=== PATIENT | male | born 1945 | race Caucasian/White ===

== ENCOUNTER 2016-11-25 21:37 | Observation (INO) ==
--- NOTE | 2016-11-25 22:36 | Emergency Department Note ---
Disposition Clinical Impression: Altered mental status Disposition: Admitted As Inpatient Condition: Fair Referrals: NO,PCP [Primary Care Provider] - Forms: ED Satisfaction Letter Syncope HPI - General Chief Complaint: ED Dizziness Stated Complaint: "went unresponsive, doesn't remember" Source: EMS Limitations: no limitations Nursing Notes Reviewed: Yes Vital Signs Reviewed: Yes - History of Present Illness HPI Narrative: A she presents with complaint of altered mental status. Per report patient was watching TV this suddenly jumped up to the headache started shaking all over and started foaming to the mouth. During this episode family states he was not responsive to sounder touch. Patient is similar episode about 9 months ago but by the time the EMS arrived his symptoms are resolved. Patient appeared to be have some post ictal symptoms associated. Patient denies chest pain denies shortness of breath. Patient denies any new medications associated area of patient states he feels "okay" - Related Data Allergies Allergy/AdvReac Type Severity Reaction Status Date / Time No Known Allergies Allergy Verified 11/25/16 21:41 All systems ED: reviewed and negative except as stated. Past Medical History - Past Medical History Source: patient Medical history: Reports: no medical history - Social History Smoking Status: Current every day smoker Alcohol use: Reports: none Drug use: Reports: none Physical Exam - General Limitations: no limitations General appearance: alert - Head Head exam: atraumatic, normocephalic, normal inspection - Eye Eye exam: Present: normal appearance, PERRL, EOMI - ENT ENT exam: normal exam, normal oropharynx, mucous membranes moist - Neck Neck exam: Present: normal inspection, full ROM, trachea midline - Chest Chest inspection: Present: normal inspection, symmetric chest wall rise - Respiratory Respiratory exam: Present: normal lung sounds bilaterally - Cardiovascular Cardiovascular exam: Present: regular rate, normal rhythm, normal heart sounds - Abdominal Exam Abdominal exam: Present: soft, Non-Tender. Absent: tenderness, distention, guarding, rebound, rigidity - Extremities Exam Extremities exam: Present: normal inspection, full ROM. Absent: tenderness, pedal edema - Back Exam Back exam: Present: normal inspection, full ROM. Absent: tenderness - Neurological Exam Neurological exam: Present: alert, oriented X3 - Psychiatric Psychiatric exam: Present: normal affect, normal mood - Skin Skin exam: Present: warm, dry, intact, normal color Course Vital Signs Temperature 97.8 F 11/25/16 21:39 Pulse Rate 88 03/16/17 21:39 Respiratory Rate 16 11/25/16 21:39 Blood Pressure 135/67 11/25/16 21:39 O2 Sat by Pulse Oximetry 95 11/25/16 21:39 Temperature 97.8 F 11/25/16 21:39 Pulse Rate 88 11/25/16 21:41 Respiratory Rate 16 11/25/16 21:41 Blood Pressure 135/67 11/25/16 21:41 O2 Sat by Pulse Oximetry 95 11/25/16 21:41 Oxygen Delivery Oxygen Delivery Room Air Syncope - Differential Diagnosis Likely: syncope due to orthostatic hypotension, vasovagal syncope, complete atrioventricular block, pulmonary embolism - Lab Data Lab results reviewed: Yes I reviewed the patient's lab results. Result diagrams: 11/25/16 22:26 11/25/16 22:26 Lab Results 11/25/16 11/25/16 11/25/16 Range/Units 22:26 22:26 22:26 WBC 11.9 H (4.3-11.1) K/mcL RBC 4.54 (4.19-5.50) M/mcL Hgb 13.4 (12.9-16.9) g/dL Hct 40.0 (37.5-50.1) % MCV 88.1 (83.0-100.0) fL MCH 29.5 (28.0-33.3) pg MCHC 33.5 (31.6-35.5) g/dL RDW 13.2 (11.5-14.5) % Plt Count 214 (140-400) K/mcL MPV 8.8 L (9.4-12.4) fL Immature Gran % 0.5 (0-4) % Seg Neutrophils % 83.1 % Lymphocytes % 9.5 % Monocytes % 5.9 % Eosinophils % 0.8 % Basophils % 0.2 % Neutrophils # 9.9 H (1.6-8.9) K/mcL Lymphocytes # 1.1 (0.6-4.6) K/mcL Monocytes # 0.7 (0.0-1.3) K/mcL Eosinophils # 0.1 (0.0-0.6) K/mcL Basophils # 0.0 (0.0-0.2) K/mcL Sodium 129 L (136-145) mEq/L Potassium 3.7 (3.5-4.5) mEq/L Chloride 96 L (98-109) mEq/L Carbon Dioxide 24 (19-29) mEq/L BUN 9 (8-26) mg/dL Creatinine 1.02 (0.72-1.25) mg/dL Est GFR ( Amer) > 60 (> 60) Est GFR (Non-Af Amer) > 60 (> 60) BUN/Creatinine Ratio 9 (6-26) Glucose 116 H (70-99) mg/dL Calculated Osmolality 268 L (280-300) Calcium 9.3 (8.6-10.8) mg/dL Total Bilirubin 0.7 (0.2-1.2) mg/dL AST 22 (5-34) Units/L ALT 19 (0-55) Units/L Alkaline Phosphatase 51 (38-126) Units/L Troponin I 0.00 (0-0.03) ng/mL Serum Total Protein 6.9 (6.0-8.3) g/dL Albumin 3.8 (3.5-5.0) g/dL Globulin 3.1 (2.4-3.5) g/dL Albumin/Globulin Ratio 1.2 (1.1-2.2) - Radiology Data Radiology results reviewed: Yes I reviewed the patient's radiology results. Chest X-Ray 11/25/16 21:59 IMPRESSION: Mild bibasilar opacification, which may represent atelectasis versus airspace disease. D/ / Issa Reese MD / Issa Reese MD Interpreting Provider: Issa Reese MD Head CT 11/25/16 21:59 IMPRESSION: No acute intracranial abnormality. D/ / Issa Reese MD / Issa Reese MD Interpreting Provider: Issa Reese MD - EKG Data EKG attestation: Yes I reviewed and interpreted this EKG. EKG results narrative: EKG is unchanged from previous EKG that was performed on 01/10/2013 EKG shows normal: sinus rhythm Rate: normal Rhythm: NSR
[2016-11-25 22:49] LABS: Basophils % 0.2 %; Eosinophils # 0.1 K/mcL (0.0-0.6); Eosinophils % 0.8 %; Hemoglobin 13.4 g/dL (12.9-16.9); Immature Granulocytes % 0.5 % (0-4); Lymphocytes # 1.1 K/mcL (0.6-4.6); Lymphocytes % 9.5 %; Mean Corpuscular HGB Conc 33.5 g/dL (31.6-35.5); Mean Corpuscular Hemoglobin 29.5 pg (28.0-33.3); Mean Corpuscular Volume 88.1 fL (83.0-100.0); Mean Platelet Volume 8.8 fL (9.4-12.4); Monocytes # 0.7 K/mcL (0.0-1.3); Monocytes % 5.9 %; Neutrophils # 9.9 K/mcL (1.6-8.9); Platelet Count 214 K/mcL (140-400); Red Blood Count 4.54 M/mcL (4.19-5.50); Red Cell Distribution Width 13.2 % (11.5-14.5); Segmented Neutrophils % 83.1 %
[2016-11-25 23:05] LABS: Alanine Aminotransferase 19 Units/L (0-55); Albumin 3.8 g/dL (3.5-5.0); Albumin/Globulin Ratio 1.2 (1.1-2.2); Alkaline Phosphatase 51 Units/L (38-126); Aspartate Amino Transferase 22 Units/L (5-34); BUN/Creatinine Ratio 9 (6-26); Bilirubin,Total 0.7 mg/dL (0.2-1.2); Blood Urea Nitrogen 9 mg/dL (8-26); Calcium 9.3 mg/dL (8.6-10.8); Carbon Dioxide 24 mEq/L (19-29); Chloride 96 mEq/L (98-109); Globulin 3.1 g/dL (2.4-3.5); Glucose 116 mg/dL (70-99); Osmolality,Calculated 268 (280-300); Potassium 3.7 mEq/L (3.5-4.5); Sodium 129 mEq/L (136-145); Total Protein 6.9 g/dL (6.0-8.3); eGFR For African Americans > 60 (> 60); eGFR For Non-African Americans > 60 (> 60)
--- NOTE | 2016-11-26 00:32 | Internal Med History&Physical ---
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 Emergency Discharge Comment: Admit Intervention Last Done ED Syncope Assessment 11/25/16 21:41 Query Result Syncope Symptoms/Complaint Loss of Consciousness Syncope Onset Tonigt" Syncope Description of Event Tonic-Clonic Movements Post-Event Confusion Syncope Prodromal Symptoms None Syncope Witnessed Yes - by Other Syncope Current Symptoms None Level Of Consciousness Awake Alert Appropriate Follows Commands Patient Orientation Person Place Name Age Date of Skin Temperature Warm Skin Moisture Dry Skin Turgor Normal Respiratory Depth Normal Respiratory Effort Non-Labored Respiratory Pattern Regular Nausea/Vomiting Presence Nauseated ED Comment "Lying in the bed watching criminal 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 No ED Admit to 3B Bed assigned 3 b 33 Transported by semiconductor manufacturing technician Transported with IV Report given to Nurse Care transferred to Bernice RN Information relayed patient's care treatments medications given condition Severity scale (1-10) 0 Pain Scale Used Standard (1-10) Blood Pressure 144/72 Heart rate 89 Respiratory Rate 16 Oxygen Delivery Room Air Pulse Oximetry Reading 96 Critical Care Minutes 0 ED Dizziness Assessment 11/25/16 22:09 Query Result Dizziness Symptoms/Complaint Dizziness Dizziness Onset "tonight" Dizziness Timing Sudden Onset Dizziness Description Lightheadedness Dizziness Similar Symptoms Previously Yes Dizziness Hx of Trauma Yes Dizziness Severity Severe Dizziness Improves With Nothing Dizziness Worsens With Movement Dizziness Associated Symptoms Denies Other Symptoms Level Of Consciousness Awake Alert Appropriate Follows Commands Patient Orientation Person Place Name Age Date of Skin Temperature Warm Skin Moisture Dry Skin Turgor Normal Respiratory Depth Normal Respiratory Effort Non-Labored Respiratory Pattern Regular Neurological Symptoms Dizziness Syncope Problems with Ambulation Unsteady Gait Nausea/Vomiting Presence None Observation Discharge Date/Time: Observation Discharge Disposition: Observation Discharge Comment: Instructions: Stand-Alone Forms: Prescriptions: Visit Report - Forms: - Referrals: Radiology Results Chest X-Ray 11/25/16 21:59 IMPRESSION: Mild bibasilar opacification, which may represent atelectasis versus airspace disease. D/ / Issa Reese MD / Issa Reese MD Interpreting Provider: Issa Reese MD Head CT 11/25/16 21:59 IMPRESSION: No acute intracranial abnormality. D/ / Issa Reese MD / Issa Reese MD Interpreting Provider: Issa Reese MD
[2016-11-26] MEDS ORDERED: Naloxone 0.4 MG/ML INJ IVP PRN (00:48)
[2016-11-26] MEDS ORDERED: *HR* Morphine 2 MG/ML SYRINGE IVP PRN (00:48)
[2016-11-26] MEDS ORDERED: *HR* Promethazine 25 MG/ML VIAL IVP PRN (00:48)
[2016-11-26] MEDS ORDERED: Acetaminophen 325 MG TABLET PO PRN (00:48)
[2016-11-26] MEDS ORDERED: *HR* OxyCODONE Immed Rel 5 MG TABLET PO PRN (00:48)
[2016-11-26] MEDS: 0.9 % Sodium Chloride 1,000 ML IVC SCH ×2 (01:31→17:35)
[2016-11-26 04:41] LABS: Bilirubin,Urine Negative (Negative); Blood,Urine Negative (Negative); Clarity,Urine Clear (Clear); Color,Urine Yellow (Yellow); Glucose,Urine (UA) Normal (Normal); Ketones,Urine Trace mg/dL (Negative); Leukocyte Esterase,Urine Negative (Negative); Nitrite,Urine Negative (Negative); Protein,Urine Trace mg/dL (Neg-Trace); Specific Gravity,Urine 1.011 (1.010-1.025); Urobilinogen,Urine Normal (Normal)
[2016-11-26 04:43] LABS: Bacteria,Urine None Seen per hpf (None-Few); Hyaline Casts,Urine None Seen per lpf (None-Few); RBC,Urine 0-3 per hpf (0-3); Squamous Epithelial Cell,Urine Many per lpf (None-Few); WBC,Urine 0-3 per hpf (0-3)
[2016-11-26 04:49] LABS: Amphetamine Screen,Urine Negative ng/mL (Cutoff=1000); Barbiturate Screen,Urine Negative ng/mL (Cutoff=200); Benzodiazepines Screen,Urine Negative ng/mL (Cutoff=200); Cannabinoid Screen,Urine Negative ng/mL (Cutoff = 50); Cocaine Screen,Urine Negative ng/mL (Cutoff= 300); Opiate Screen,Urine Negative ng/mL (Cutoff=300); Phencyclidine Screen,Urine Negative ng/mL (Cutoff=25)
[2016-11-26 05:06] LABS: VBG HCO3 25.9 mEq/L (21-27); VBG PH 7.35 pH Units (7.32-7.42)
[2016-11-26 05:10] LABS: Basophils % 0.2 %; Eosinophils # 0.1 K/mcL (0.0-0.6); Eosinophils % 0.6 %; Hematocrit 37.9 % (37.5-50.1); Hemoglobin 12.7 g/dL (12.9-16.9); Immature Granulocytes % 0.2 % (0-4); Lymphocytes # 1.5 K/mcL (0.6-4.6); Lymphocytes % 18.4 %; Mean Corpuscular HGB Conc 33.5 g/dL (31.6-35.5); Mean Corpuscular Hemoglobin 29.4 pg (28.0-33.3); Mean Corpuscular Volume 87.7 fL (83.0-100.0); Mean Platelet Volume 8.9 fL (9.4-12.4); Monocytes # 0.7 K/mcL (0.0-1.3); Monocytes % 8.4 %; Platelet Count 193 K/mcL (140-400); Red Blood Count 4.32 M/mcL (4.19-5.50); Red Cell Distribution Width 13.2 % (11.5-14.5); Segmented Neutrophils % 72.2 %
[2016-11-26 05:27] LABS: Creatine Kinase 708 Units/L (30-200)
[2016-11-26 05:28] LABS: Ethanol < 10 mg/dL (0-10)
[2016-11-26 05:31] LABS: Alanine Aminotransferase 17 Units/L (0-55); Albumin 3.5 g/dL (3.5-5.0); Albumin/Globulin Ratio 1.1 (1.1-2.2); Alkaline Phosphatase 54 Units/L (38-126); Aspartate Amino Transferase 28 Units/L (5-34); BUN/Creatinine Ratio 9 (6-26); Bilirubin,Total 0.7 mg/dL (0.2-1.2); Blood Urea Nitrogen 8 mg/dL (8-26); Calcium 8.8 mg/dL (8.6-10.8); Carbon Dioxide 22 mEq/L (19-29); Chloride 100 mEq/L (98-109); Chol/HDL Ratio 3.1 (0-4.9); Cholesterol 140 mg/dL (< 200); Globulin 3.1 g/dL (2.4-3.5); Glucose 103 mg/dL (70-99); HDL Cholesterol 45 mg/dL (40-59); LDL Cholesterol,Calculated 77 mg/dL (0-99); Magnesium 1.7 mg/dL (1.6-2.6); Osmolality,Calculated 273 (280-300); Phosphorous 3.5 mg/dL (2.3-4.7); Potassium 3.9 mEq/L (3.5-4.5); Sodium 132 mEq/L (136-145); Total Protein 6.6 g/dL (6.0-8.3); Triglycerides 89 mg/dL (< 150); eGFR For African Americans > 60 (> 60); eGFR For Non-African Americans > 60 (> 60)
[2016-11-26 05:42] LABS: C-Reactive Protein 0 mg/L (Less than 5)
[2016-11-26 05:43] LABS: Thyroid Stimulating Hormone 2.014 mcIU/mL (0.350-4.840)
[2016-11-26 06:04] LABS: Prolactin 2.42 ng/mL (3.46-19.40)
[2016-11-26] MEDS ORDERED: *HR* LORazepam 2 MG/ML VIAL IVP PRN (06:52)
[2016-11-26] MEDS ORDERED: Ipratropium/Albuterol Neb 3 ML IH PRN (06:53)
[2016-11-26] MEDS ORDERED: Albuterol 2.5 MG/3 ML NEBULIZER IH PRN (06:53)
[2016-11-26] MEDS: Famotidine 20 MG TABLET PO SCH ×2 (08:14→20:36)
[2016-11-26] MEDS: Nicotine 21 MG PATCH.TD24 TD SCH (08:17)
--- NOTE | 2016-11-26 08:32 | Neurology - Consult Note ---
Date of Encounter: 11/26/16 Time of Encounter: 08:31 Assessment and Plan (1) Seizure disorder Current Visit: Yes Status: Acute Patients appears to have had his second unprovoked seizure last night, so will start treatment with Keppra 500 mg BID MRI without contrast and EEG have already been ordered, will await results Continue with seizure precautions and Ativan PRN for acute seizure episodes He may be predisposed to having seizures given the finding of hyponatremia initially of 129, but unsure if he has baseline chronically low levels History of Present Illness Chief complaint: altered mental status HPI: Mr. Vyas is a 71 year old male who presents to the ED with altered mental status concerning for possible seizure. His is at bedside and is able to assist with history as patient does not remember the exact details of the event. He states last night around 7:30 PM he was watching TV on his bed and suddenly lost consciousness. His was nearby on her computer and heard him scream, then saw that he was rigid with his arms flexed, was foaming at the mouth, and unresponsive to voice or touch. This episode lasted about 5 minutes and he also urinated himself, bit his tongue, and had an episode of vomiting. When he did regain consciousness, says that he remained confused stating he did not know he urinated himself and this state lasted about 5-10 minutes until the squad arrived. Patient denies any visual or hearing changes, chest pain, shortness of breath, headache, numbness, tingling or weakness. Patient admits having a similar episode 9 months ago, where the squad was also called. However, the symptoms completely resolved when they did come and he elected to not go to the hospital. He also describes falling off a ladder 8 months ago and hit his head and sprained his right ankle, but he did not get evaluated at time as well. He does have a history of HTN, anxiety and depression but has not started any new medications recently. He does admit to drinking about 2-3 cans of beer a week but denies any history of heavy use or withdrawals. Past Med Surg Social Fam HX - Past Medical History Medical history: arthritis, cancer (Prostate cancer status post brachytherapy), COPD (chronic bronchitis), diabetes (Impaired fasting glucose/glucose intolerance; borderline type 2 diabetes mellitus.), GERD, hyperlipidemia, hypertension, other (Periodic insomnia.) Psychiatric history: anxiety, depression, other - Past Surgical History Surgical History: cancer surgery (Brachytherapy for prostate cancer. Cystoscopy.), orthopedic, other (Back surgery. Ankle surgery.), other - Social History Smoking Status: Current every day smoker Alcohol use: rarely Drug use: none - Family History Father Hx Family Cardiac Disorders: Yes Medications and Allergies BuPROPion [Wellbutrin] 300 mg PO DAILY 11/26/16 [History] TraZODone 50 mg PO HS PRN 11/26/16 [History] Allergies No Known Allergies Allergy (Verified 11/25/16 21:41) All Systems: A 10-system review of systems was performed and is negative for pertinent findings except as documented above in the HPI. - Constitutional Constitutional ROS IM: no fever(s), no frequent falls, no headache(s), no weakness - Cardiovascular Cardiovascular ROS IM: syncope, no chest pain, no dyspnea, no dyspnea on exertion, no irregular heart rhythm, no pedal edema - Respiratory Respiratory IM: no cough, no wheezing, no excessive phlegm production, no change in phlegm color - Gastrointestinal Gastrointestinal: vomiting, no abdominal pain, no diarrhea, no dysphagia, no melena, no nausea - Musculoskeletal Musculoskeletal ROS IM: no arthralgias, no back pain, no muscle cramps - Neurological Neurological ROS: confusion, memory loss, syncope, no abnormal gait, no disequilibrium, no dizziness, no focal weakness, no headache(s), no numbness - Psychiatric Psychiatric general PM: anxiety, depression Physical Examination - Vital Signs Vital Signs: Initial Vital Signs Temp Pulse Resp BP Pulse Ox 97.8 F 88 16 135/67 95 11/25/16 21:39 11/25/16 21:39 11/25/16 21:39 11/25/16 21:39 11/25/16 21:39 - Exam Exam: superficial ulcer of tongue on right lateral side. previous scar on vertex of head from fall and stitching - Constitutional General appearance: comfortable - Neurologic Sensorimotor examination: intact Detailed motor examination: full strength in all major muscle groups Motor examination - right side: 5/5: deltoids, biceps, triceps, wrist flexion, wrist extension, saw straightener, hip flexors, tibialis Anterior, quadriceps Motor examination - left side: 5/5: deltoids, biceps, triceps, wrist flexion, wrist extension, hip flexors, saw straightener, quadriceps, tibialis Anterior Detailed sensory examination: intact Reflex and gait examination: intact Reflexes: Biceps: 2+, Brachioradialis: 2+, Patella: 2+, Achilles: 2+ Mental Status Examination: awake, alert, oriented to person, oriented to place, oriented to time, follows commands appropriately, answers questions appropriately, no agnosia, no aphasia, no aproxia Cranial nerve examination: PERRL, EOMI, visual guerrero intact, corneal reflexes brisk symmetrically, sensory to face intact, mastication intact, no facial asymmetry is present, no dysarthria, hearing is intact symmetrically, soft palate elevates bilaterally upon phonation, gag reflex intact, flexes SCM and trapezius muscles symmetrically with full power, tongue protrudes midline, no atrophy or facial fasiculations present Cerebellar examination: no dysmetria, performs finger to nose and heel to ross symmetrically without ataxia, no gait ataxia, no truncal ataxia, no difficulty with rapid alternating movements Results - Laboratory Findings CBC and BMP: 11/26/16 04:50 11/26/16 04:50 Abnormal lab findings: Abnormal lab results Hgb 12.7 g/dL (12.9-16.9) L 11/26/16 04:50 MPV 8.9 fL (9.4-12.4) L 11/26/16 04:50 VBG pO2 47 mmHg (25-40) H 11/26/16 04:50 Sodium 132 mEq/L (136-145) L 11/26/16 04:50 Glucose 103 mg/dL (70-99) H 11/26/16 04:50 Serum Osmolality 275 mOsm/kg (280-300) L 11/26/16 04:50 Calculated Osmolality 273 (280-300) L 11/26/16 04:50 Creatine Kinase 708 Units/L (30-200) H 11/26/16 04:50 Prolactin 2.42 ng/mL (3.46-19.40) L 11/26/16 04:50 Urine Ketones Trace mg/dL (Negative) H 11/26/16 04:28 Ur Squamous Epith Cells Many per lpf (None-Few) H 11/26/16 04:28 Urine Osmolality 215 mOsm/kg (300-1090) L 11/26/16 04:28 Consult Discharge Plan - Plan Referrals: Lucien Borja DO [Primary Care Provider] -
[2016-11-26] MEDS: levETIRAcetam 250 MG TABLET PO SCH ×2 (12:37→17:35)
--- NOTE | 2016-11-26 14:02 | ECHO - Doppler Report ---
Echocardiogram Name: Aamir Vyas Date of Study: 11/26/2016 Date: 1945 Ht: 69.0 in Medical Record#: [id number] Age: 71 Wt: 218.0 lb Gender: Male BSA: 2.14 Order #: [id number] Location: [facility] Room #: [facility] Reading Physician: Jonas Kerr DO, DIXON HASTINGS FASNC Cd Reactor Operator: Ronald Lincoln RDCS Ordering Physician: Aristides Do MD Primary Physician: Lucien Borja DO Indications: Syncope Impressions: LVEF 60-65%. Normal LV chamber size and function. Mild concentric left ventricular hypertrophy. Mild left ventricular diastolic dysfunction. Normal right ventricular structure and function. No evidence of pulmonary hypertension. No significant valvular dysfunction. Left Ventricular Wall Motion: Rest Echo Findings All wall segments showed normal motion. Findings: Study Quality * Technically adequate exam. ECG Findings * Normal sinus rhythm. Left Ventricle * LVEF 60-65%. * Normal LV chamber size and function. * Mild concentric left ventricular hypertrophy. * Mild left ventricular diastolic dysfunction. Right Ventricle * Normal right ventricular structure and function. Left Atrium * Mildly dilated left atrium. Right Atrium * Normal right atrial size. Interatrial Septum * No evidence of PFO by color Doppler. Aortic Valve * Trileaflet aortic valve with normal function. * No aortic regurgitation. * No aortic stenosis. Mitral Valve * Normal mitral valve structure and function. * No mitral regurgitation. * No mitral stenosis. Tricuspid Valve * Normal tricuspid valve structure and function. * Trace tricuspid regurgitation. * No evidence of pulmonary hypertension. Pulmonic Valve * Pulmonic valve not well visualized. * No pulmonic regurgitation. Aorta * Normally sized aortic root. Pericardium * The pericardium appears normal. IVC * Normal IVC dimensions and inspiratory collapse. Pulmonary Artery * Normal visualized portions of the main pulmonary artery. History Hypertension Hypercholesteremia Family History of CAD Measurements: BP: 128/ 71 2D Normal Values RVIDd: 3.00 cm <2.7 cm IVSd: 1.20 cm 0.6 - 1.0 cm LVIDd: 4.50 cm 3.7 - 5.6 cm LVPWd: 1.20 cm 0.6 - 1.1 cm LVIDs: 2.60 cm 1.5 - 3.6 cm AO: 2.80 cm < 4.0 cm LA: 3.00 cm 2.0 - 4.0cm %FS: 42.20 cm >25 % LA volume: 40 Mitral Valve Peak E:.65 m/sec Peak A:1.03 m/sec E/A Ratio:0.6 Peak E' Lat Rey:10.9 cm/s Peak E' Med Rey:6.53 cm/s E/E' Lat Ratio:6 E/E' Med Ratio:10 Tricuspid Valve TV Regurg Peak Grad: 9.00mmHg TV Regurg Peak Rey: 1.48m/sec Updated by Jonas Kerr DO, DARLING, DIXON, AISHWARYA on 11/26/2016 1:58:13 PM electronically signed on 11/26/2016 1:59:00 PM with status of Final Wall Motion [place]: 1=Normal, 2=Hypokinesis, 3=Akinesis, 4=Dyskinesis, 5=Aneurysmal, 6=Hyperkinetic, X=Not Visualized (Blank)=Missing
--- NOTE | 2016-11-26 14:24 | EEG/EMG/Oth Biometrics Report ---
EEG Procedure Report Date of procedure: 11/26/16 EEG Procedure: Routine EEG Procedure Note: Medication: no anticonvulsants listed. Report: This EEG was acquired with standard international 10-20 electrode placement system with EKG recording. The Background activity during this EEG was characterized by the presence of posterior dominant alpha rhythm with best frequency up to 11 Hz. The background activity was reactive to eye openings. Sleep stages were not identified. Drowsiness was characterized by the presence of drop off of posterior dominant alpha rhythm. There are no electricographic seizures identified during this tracing. There are however, intermittent polyspile/spike/slow waves, occurring synchronously, during wakefulness. No focal slowing noted during this recording. Photic stimulation produced no abnormalities. HV not performed during this study. EKG tracing showed no significant cardiac dysarrhythmia. Impression: This is an abnormal EEG due to presence of intermittent, synchronous high amplitude polyspike/spike/slow wave activity during wakefulness. Clinical Correlation: This EEG showed abnormal findings that may suggest increased susceptibility for a generalized seizure disorder. This could be seen as an interictal phenomenon in patients with generalized epilepsy. Clinical correlation is advised. Prolonged EEG recording can be useful in seizure confirmation.
--- NOTE | 2016-11-26 16:40 | Electrocardiograph Report ---
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
[2016-11-26] MEDS ORDERED: levETIRAcetam 250 MG TABLET PO SCH (18:00)
--- NOTE | 2016-11-26 19:42 | Internal Med Progress Note ---
Date of Encounter: 11/26/16 Time of Encounter: 09:00 - Assessment and plan (1) Observed seizure-like activity Current Visit: Yes Status: Acute Assessment and plan: Patient was watching TV last diabetic approximately 7:30 PM he has no recollection of events after this until this morning in the ED. states that patient jumped up and grabbed his head like he had a headache began shaking. She states that he was incontinent of urine and did bite his tongue. Per the ED report patient did have postictal timeframe. EEG done today results pending. .prn Ativan for seizure activity Seizure precautions Patient started on Keppra by neurology Correcting hyponatremia We will continue to monitor labs and vital signs (2) Altered mental status Current Visit: Yes Status: Acute Assessment and plan: Patient appears to have witnessed seizure-like activity a post ictal period afterwards. Patient is a poor historian. MRI head shows no acute intracranial abnormality or acute infarct, does show minimal global volume loss with mild chronic microvascular ischemic changes. Monitor labs Monitor vital signs Qualifiers: Altered mental status type: unspecified Qualified Code(s): R41.82 - Altered mental status, unspecified (3) Seizure disorder Current Visit: Yes Status: Acute Assessment and plan: Plan as above (4) HLD (hyperlipidemia) Current Visit: Yes Status: Chronic Assessment and plan: Continue home medications. Chronic Qualifiers: Hyperlipidemia type: unspecified Qualified Code(s): E78.5 - Hyperlipidemia , unspecified (5) HTN (hypertension) Current Visit: Yes Status: Chronic Assessment and plan: Chronic. Continue home medications. Monitor vital signs. Qualifiers: Hypertension type: unspecified secondary hypertension Qualified Code(s): I15.9 - Secondary hypertension, unspecified; I15 - Secondary hypertension - Time Spent With Patient less than 15 minutes - Subjective Interval history: Patient states that he was watching TV last night and is unaware of any events after that. Patient appears to be slightly confused this morning and says that this happened about 9 months ago as well when he fell from a ladder. Patient then states that that is not true and happened about 2 years ago after he discontinued his antidepressant suddenly. Patient states he is questioning now if this episode has something to do with inconsistent use of Xanax. - Constitutional Vitals: Temp Pulse Resp BP Pulse Ox 98.3 F 94 16 129/75 93 L 11/26/16 16:44 11/26/16 16:44 11/26/16 16:44 11/26/16 16:44 11/26/16 16:44 General appearance: Present: cooperative, mild distress, A&O X 3, obese, answers questions appropriately - Head Head exam: Present: atraumatic, normal inspection - Eye Eye exam: Present: normal appearance, PERRL, conjuntiva pink. Absent: nystagmus - ENT ENT exam: Present: mucous membranes moist, normal exam, normal external ear exam - Neck Neck exam general surgery: Present: normal inspection. Absent: lymphadenopathy , tenderness - Respiratory Respiratory exam: Present: CTAB. Absent: chest wall tenderness, decreased breath sounds, prolonged expiratory phase, rales, respiratory distress, rhonchi , stridor, wheezes, tachypnea - Cardiovascular Cardiovascular exam: Present: RRR, +S1, +S2. Absent: diastolic murmur, systolic murmur - GI/Abdominal GI/Abdominal exam: Present: normal bowel sounds. Absent: hepatomegaly, tenderness - Extremities Exam Extremities exam: Present: full ROM, normal capillary refill, normal inspection , warm, radial pulses palpable and symetrical. Absent: calf tenderness, cyanotic, joint swelling, pedal edema, tenderness - Neurological Exam Neurological exam: Present: alert, oriented X3, strengths equal and symetr throughout. Absent: no focal deficits, pronater drift, facial droop, speech deficit Internal Medicine: Result - Labs CBC & Chem 7: 11/26/16 04:50 11/26/16 04:50 Labs: Short CBC 11/26/16 Range/Units 04:50 WBC 8.3 (4.3-11.1) K/mcL Hgb 12.7 L (12.9-16.9) g/dL Hct 37.9 (37.5-50.1) % Plt Count 193 (140-400) K/mcL Neutrophils # 6.0 (1.6-8.9) K/mcL BMP 11/26/16 04:50 Sodium 132 L Potassium 3.9 Chloride 100 Carbon Dioxide 22 BUN 8 Creatinine 0.91 Glucose 103 H Calcium 8.8 Cardiac Enzymes 11/26/16 11/26/16 11/26/16 Range/Units 04:50 11:56 16:17 Troponin I 0.01 0.01 0.00 (0-0.03) ng/mL Liver Function 11/26/16 Range/Units 04:50 Total Bilirubin 0.7 (0.2-1.2) mg/dL AST 28 (5-34) Units/L ALT 17 (0-55) Units/L Alkaline Phosphatase 54 (38-126) Units/L Albumin 3.5 (3.5-5.0) g/dL Urine 11/26/16 Range/Units 04:28 Urine Color Yellow (Yellow) Urine Clarity Clear (Clear) Urine pH 7.0 (5.0-8.0) pH Units Ur Specific [place] 1.011 (1.010-1.025) Urine Protein Trace (Neg-Trace) mg/dL Urine Glucose (UA) Normal (Normal) mg/dL - Impressions Impressions Brain MRI 11/26/16 00:52 IMPRESSION: 1. No acute intracranial abnormality. No acute infarct. 2. Minimal global parenchymal volume loss with mild chronic microvascular ischemic change. D/ / Issa Reese MD / Issa Reese MD Interpreting Provider: Issa Reese MD Consult Discharge Plan - Plan Referrals: Lucien Borja DO [Primary Care Provider] -
[2016-11-27 05:04] LABS: Basophils % 0.7 %; Eosinophils # 0.2 K/mcL (0.0-0.6); Eosinophils % 2.7 %; Hematocrit 37.7 % (37.5-50.1); Hemoglobin 12.3 g/dL (12.9-16.9); Immature Granulocytes % 0.2 % (0-4); Lymphocytes # 1.8 K/mcL (0.6-4.6); Lymphocytes % 32.7 %; Mean Corpuscular HGB Conc 32.6 g/dL (31.6-35.5); Mean Corpuscular Hemoglobin 29.6 pg (28.0-33.3); Mean Corpuscular Volume 90.8 fL (83.0-100.0); Monocytes # 0.5 K/mcL (0.0-1.3); Monocytes % 8.7 %; Platelet Count 187 K/mcL (140-400); Red Blood Count 4.15 M/mcL (4.19-5.50); Red Cell Distribution Width 13.3 % (11.5-14.5)
[2016-11-27 05:21] LABS: BUN/Creatinine Ratio 10 (6-26); Blood Urea Nitrogen 10 mg/dL (8-26); Calcium 8.5 mg/dL (8.6-10.8); Carbon Dioxide 22 mEq/L (19-29); Chloride 106 mEq/L (98-109); Glucose 89 mg/dL (70-99); Osmolality,Calculated 281 (280-300); Potassium 4.3 mEq/L (3.5-4.5); Sodium 136 mEq/L (136-145); eGFR For African Americans > 60 (> 60); eGFR For Non-African Americans > 60 (> 60)
[2016-11-27] MEDS: levETIRAcetam 250 MG TABLET PO SCH (05:28)
[2016-11-27] MEDS: Nicotine 21 MG PATCH.TD24 TD SCH (08:21)
[2016-11-27] MEDS: Famotidine 20 MG TABLET PO SCH (08:25)
[2016-11-27 10:52] VITALS: BP 147/77
--- NOTE | 2016-11-27 15:27 | Discharge Summary ---
Date of Encounter: 11/27/16 Time of Encounter: 13:39 - Discharge Diagnosis (1) Seizure disorder Priority: Primary Status: Acute Comments: Pt left AMA prior to getting his rx for Keppra. I did call it in to [facility] pharmacy in [place]. I made contact by phone with pt and he is aware that he needs to pick it up today. He also is aware that he needs to call neurology office to make a follow up appointment in 2-3 weeks (2) Observed seizure-like activity Priority: Secondary Status: Acute Comments: Plan as above. (3) Altered mental status Priority: Secondary Status: Acute Comments: Pt was alert and oriented when he left today Qualifiers: Altered mental status type: unspecified Qualified Code(s): R41.82 - Altered mental status, unspecified (4) HLD (hyperlipidemia) Priority: Secondary Status: Chronic Comments: Continue home medications. Chronic. Stable. Qualifiers: Hyperlipidemia type: unspecified Qualified Code(s): E78.5 - Hyperlipidemia , unspecified (5) HTN (hypertension) Priority: Secondary Status: Chronic Comments: Chronic, Stable, Continue home medications. Qualifiers: Hypertension type: unspecified secondary hypertension Qualified Code(s): I15.9 - Secondary hypertension, unspecified; I15 - Secondary hypertension - Discharge Medications Home Medications: Alprazolam [Xanax 1 MG Tablet] 0.5 - 1 mg PO BID 11/26/16 [History] Aspirin Enteric Coated [Aspirin EC] 81 mg PO DAILY 11/26/16 [History] Atorvastatin [Lipitor] 60 mg PO HS 11/26/16 [History] Bupropion HCl [Wellbutrin Xl] 300 mg PO QAM 11/26/16 [History] Cholecalciferol (Vitamin D3) [Vitamin D3] 2,000 unit PO DAILY 11/26/16 [History] Gemfibrozil [Lopid] 600 mg PO BID 11/26/16 [History] Levomilnacipran HCl [Fetzima] 20 mg PO DAILY 11/26/16 [History] Lisinopril/Hydrochlorothiazide [Zestoretic 10-12.5 mg Tablet] 1 each PO DAILY [History] [place]-3/Dha/Epa/Fish Oil [Fish Oil 1,000 mg Softgel] 1,000 mg PO BID 11/26/16 [ History] Omeprazole [PriLOSEC] 40 mg PO DAILY 11/26/16 [History] TraZODone 50 mg PO HS PRN 11/26/16 [History] Vitamin E (Dl,Tocopheryl Acet) [Vitamin E] 400 unit PO DAILY 11/26/16 [History] LevETIRAcetam [Keppra] 500 mg PO Q12HR tablet 11/27/16 [Rx] Allergies/Adverse Reactions: Allergies No Known Allergies Allergy (Verified 11/25/16 21:41) Procedures/tests Complete & Pending: Procedures Performed prior 72 hours Category Date Time Status MR head/brain wo con [MR] Routine MRI 11/26/16 00:52 Completed EV carotid duplex imaging BI Routine Y 11/26/16 00:52 Completed EV echocardiogram Routine Y 11/26/16 00:52 Completed Date of admission: 11/25/16 23:53 Primary care physician: Lucien Borja DO Consults: 11/26/16 06:53 Consult to Nurse Navigator [CONS] Routine Comment: 11/26/16 10:03 Consult to Interpret Exam [CONS] Routine Consulting Provider: Bogdan Newby Consult to Interpret Exam: Interpret EEG Discharging clinician: Norma Villa - Patient Status Disposition: Home, Self-Care Condition: Good Functional capacity at discharge: independent ambulation Overall status at discharge: patient is back to baseline - Discharge Instructions Follow Up With: Lucien Borja DO [Primary Care Provider] - Additional Instructions: Call neurology office for a follow up appointment in the next 2-[address] until you are cleared by neurology Take your medications daily as directed. Please return to ED if you have any other problems or concerns. - Diet and Activity Activity: resume usual activities as tolerated Diet: advance to your usual diet Interval History: Pt was admitted yesterday for new onset seizure disorder. Pt was at home watching tv when he grabbed his head and started shaking. He was incontinent and bit his tongue. Seizure activity lasted approx 5 min per , who witnessed the entire episode. Pt states that he had a similar episode either a year or 2 ago, pt was unsure of which time it was. Approximately 8-9 mos ago he fell off of a ladder and had a similar episode but refused care and had resolved when EMS arrived at his home. Pt then states that he had another episode about 2 years ago when he was at home. EEG was abnormal and pt was seen by neurology, who placed him on Keppra 500mg po bid. Pt initially had hyponatremia, 129, which resolved and today it was 136. Pts labs were all WNL today, except for calcium of 8.5. Calcium carbonate was ordered this a.m for correction. At approx 1330 pt removed his own IV and said that he had to go home. He stated that his is recovering from breast cancer surgery and has a mammogram, his sister can't stay any longer, and he needs to go home. Pt does not drive, and family picked him up. 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 Pt voiced understanding. 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 I did not get to examine pt prior to leaving [place]. Hospital course: Mr. Vyas is a 71 year old male - Time Spent with Patient Total time spent providing and/or coordinating discharge services: Less than 30 minutes - Constitutional Vitals: Temp Pulse Resp BP Pulse Ox 98.8 F 80 16 147/77 97 11/27/16 10:50 11/27/16 10:50 11/27/16 10:50 11/27/16 10:50 11/27/16 10:50 General appearance: Present: cooperative, mild distress, A&O X 3, obese, answers questions appropriately
[2016-11-28 11:45] LABS: Total Volume 24 Hour,Urine 1.66 Liters (0.80-1.80)
[2016-11-28 12:00] LABS: Chloride,Urine 54 mEq/L; Creatinine 24 Hour,Urine 1.29 g/day (0.71-1.65); Creatinine,Urine 78 mg/dL; Microalbum/Creatinine Ratio,Ur < 6 (0-30); Microalbumin,Urine < 5 mg/L; Protein/Creatinine Ratio,Urine < 0.09 mg/mg (0-0.20)
--- NOTE | 2016-11-28 16:44 | Carotid Imaging Report ---
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 Recommendations: After imaging the patient returned to their room. Findings Carotid Duplex: Right: The right proximal common carotid artery has a PSV of 112 cm/s and a EDV of 15 cm/s. The right mid common carotid artery has a PSV of 86 cm/s and a EDV of 12 cm/s. There is nonstenotic plaque in the right distal common carotid artery with a PSV of 87 cm/s and a EDV of 18 cm/s. There is smooth heterogeneous plaque. There is nonstenotic plaque in the right bifurcation with a PSV of 65 cm/s and a EDV of 14 cm/s. There is irregular heterogeneous plaque. The right proximal internal carotid artery has a PSV of 72 cm/s and a EDV of 19 cm/s. The right mid internal carotid artery has a PSV of 113 cm/s and a EDV of 38 cm/s. The right distal internal carotid artery has a PSV of 118 cm/s and a EDV of 40 cm/s. The right eca has a PSV of 95 cm/s and a EDV of 15 cm/s. The right vertebral artery has a PSV of 72 cm/s and a EDV of 18 cm/s. Left: The left proximal common carotid artery has a PSV of 101 cm/s and a EDV of 13 cm/s. The left mid common carotid artery has a PSV of 79 cm/s and a EDV of 21 cm/s. The left distal common carotid artery has a PSV of 67 cm/s and a EDV of 15 cm/s. There is nonstenotic plaque in the left bifurcation with a PSV of 66 cm/s and a EDV of 18 cm/s. There is irregular heterogeneous plaque. There is nonstenotic plaque in the left proximal internal carotid artery with a PSV of 97 cm/s and a EDV of 28 cm/s. There is smooth heterogeneous plaque. The left mid internal carotid artery has a PSV of 128 cm/s and a EDV of 39 cm/s. The left distal internal carotid artery has a PSV of 87 cm/s and a EDV of 26 cm/s. The left eca has a PSV of 94 cm/s and a EDV of 16 cm/s. The left vertebral artery has a PSV of 55 cm/s and a EDV of 15 cm/s. High velocities appear to be d/t tortuous ICA. Prior Study: No prior study available for comparison. Carotid Results Right PSV EDV Assessment Proximal CCA 112 15 Normal Mid CCA 86 12 Normal Distal CCA 87 18 Non Stenotic Plaque Bifurcation 65 14 Non Stenotic Plaque Proximal ICA 72 19 Normal Mid ICA 113 38 Normal Distal ICA 118 40 Normal ECA 95 15 Normal Vertebral Artery 72 18 Normal Left PSV EDV Assessment Proximal CCA 101 13 Normal Mid CCA 79 21 Normal Distal CCA 67 15 Normal Bifurcation 66 18 Non Stenotic Plaque Proximal ICA 97 28 Non Stenotic Plaque Mid ICA 128 39 Normal Distal ICA 87 26 Normal ECA 94 16 Normal Vertebral Artery 55 15 Normal Ratio's Right ICA/CCA Ratio: 1.37 ICA/CCA Values: 118/86 Left ICA/CCA Ratio: 1.62 ICA/CCA Values: 128/79 Updated by Sanjay Martinez MD on 11/28/2016 4:37:53 PM electronically signed on 11/28/2016 4:38:04 PM with status of Final
== END 2016-11-27 13:55 | disposition home or self-care (01) ==
LOC: 3BNU 21:37 → EMEROO 21:37 → 3BNU 11-26 00:34
PROVIDERS: ADMIT Pediatrics; ATTEND Registered Nurse